=== PATIENT | female | born 1965 | race Caucasian/White ===

== ENCOUNTER 2017-03-31 07:55 | Observation (INO) | payer MEDICAID ==
[2017-03-31 08:11] VITALS: BMI 34.9
--- NOTE | 2017-03-31 08:20 | ED PDOC ---
Arrival/HPI - General Chief Complaint: Chest Pain Time Seen by Provider: 03/31/17 08:02 Historian: Patient - History of Present Illness Narrative History of Present Illness (Text): 03/31/17 08:14 A 52 year old female whose past medical history includes COPD, emphysema, bipolar, triple bypass with stents, GERD, presents to the emergency department with 3 day duration, intermittent, sharp left sided chest wall and neck pain that radiates down her right arm with associated nausea. The patient states that she was laying in bed when the pain began and that she experiences pain with movement of her left arm and neck. She took 81mg of Aspirin this morning. She notes that she has been stressed for the last couple of days. The patient denies fevers, chills, headache, dizziness, abdominal pain, vomiting, diarrhea, trauma or injury, or any other complaint. PMD: Dr. Quintanilla Supervisor [facility]: Dr. Benjamin Time/Duration: Other (3 Days ago) Symptom Onset: Sudden Symptom Course: Unchanged Activities at Onset: Rest, Light Context: Home Past Medical History - Provider Review Nursing Documentation Reviewed: Yes - Infectious Disease Hx of Infectious Diseases: None - Tetanus Immunization Tetanus Immunization: Unknown - Cardiac Hx [place]: Yes Hx Hypertension: Yes Other/Comment: Triple bypass - Pulmonary Hx Chronic Obstructive Pulmonary Disease (COPD): Yes Hx Emphysema: Yes - Neurological Hx Neurological Disorder: No - HEENT Hx HEENT Disorder: No - Renal Hx Renal Disorder: No - Endocrine/Metabolic Hx Endocrine Disorders: No - Hematological/Oncological Hx Blood Disorders: No - Musculoskeletal/Rheumatological Hx Falls: No - Gastrointestinal Hx Gastroesophageal Reflux: Yes - Genitourinary/Gynecological Hx Genitourinary Disorders: No - Psychiatric Hx Bipolar Disorder: Yes Hx Depression: No Hx Substance Use: No - Surgical History Hx Coronary Stent: Yes (x3) Other/Comment: Triple bypass - Anesthesia Hx Anesthesia: No - Suicidal Assessment Feels Threatened In Home Enviroment: No Family/Social History - Physician Review Nursing Documentation Reviewed: Yes Family/Social History: No Known Family HX Smoking Status: Former Smoker Hx Alcohol Use: No Hx Substance Use: No Hx Substance Use Treatment: No Allergies/Home Meds Allergies/Adverse Reactions: Allergies No Known Allergies Allergy (Verified 03/31/17 08:03) Home Medications: Home Meds Medication Instructions Recorded Confirmed Sertraline [Zoloft] 100 mg PO DAILY 12/12/11 03/31/17 ALPRAZolam [Xanax] 1 mg PO BID 12/24/15 03/31/17 Divalproex [Depakote ER] 1,000 mg PO DAILY 02/13/16 03/31/17 Clopidogrel [Plavix] 75 mg PO DAILY 11/30/16 03/31/17 Review of Systems - Physician Review All systems were reviewed & negative as marked: Yes - Review of Systems Constitutional: absent: Fevers, Night Sweats Respiratory: absent: SOB Cardiovascular: Chest Pain Gastrointestinal: Nausea. absent: Abdominal Pain, Diarrhea, Vomiting Musculoskeletal: Neck Pain, Other (left arm pain radiating from the chest wall ) Neurological: absent: Headache, Dizziness Physical Exam Vital Signs Reviewed: Yes Vital Signs Temp Pulse Resp BP Pulse Ox 03/31/17 11:15 65 16 131/91 H 98 03/31/17 10:11 64 16 126/87 98 03/31/17 08:10 98.2 F 62 18 147/90 99 Temperature: Afebrile Blood Pressure: Normal Pulse: Regular Respiratory Rate: Normal Appearance: Positive for: Well-Appearing, Non-Toxic, Comfortable Pain Distress: None Mental Status: Positive for: Alert and Oriented X 3 - Systems Exam Head: Present: Atraumatic, Normocephalic Pupils: Present: PERRL Extroacular Muscles: Present: EOMI Conjunctiva: Present: Normal Mouth: Present: Moist Mucous Membranes Neck: Present: Other (left sided neck tenderness worse with movement) Respiratory/Chest: Present: Other (Left sided chest wall tenderness) Cardiovascular: Present: Regular Rate and Rhythm, Normal S1, S2. No: Murmurs Abdomen: Present: Normal Bowel Sounds. No: Tenderness, Distention, Peritoneal Signs Back: Present: Normal Inspection Upper Extremity: Present: Normal Inspection. No: Cyanosis, Edema Lower Extremity: Present: Normal Inspection. No: Edema Neurological: Present: GCS=15, CN II-XII Intact, Speech Normal Skin: Present: Warm, Dry, Normal Color. No: Rashes Psychiatric: Present: Alert, Oriented x 3, Normal Insight, Normal Concentration Medical Decision Making ED Course and Treatment: 03/31/17 08:24 Impression: A 52 year old female with a complaint of left sided 3 day duration, sharp, intermittent chest pain, radiating to the left arm and neck. Differential Diagnosis included but are not limited to: Chest Pain rule out ACS vs. Musculoskeletal Plan: -- EKG -- Chest X-Ray -- Labs -- Ecotrin and Flexeril -- Reassess and disposition Prior Visits: Notes and results from previous visits were reviewed. On 03/15/2016 patient came in complaining of chest pain. Patient was discharged home. 11/29/2016 Normal Stress Test. Progress Notes: EKG: Ordered, reviewed, and independently interpreted the EKG. Rate : 53 BPM Rhythm : Sinus Bradycardic Interpretation : ST changes and interior lead. Comparison : Similar to previous EKG on 03/15/2016 03/31/17 09:25: Discussed case with Dr. Quintanilla. Dr. Quintanilla at bedside, recommends Head CT before reevaluation and disposition. 03/31/17 10:06: Chest X-Ray, read and interpreted by me: Negative. Chest X-Ray Dictator : Timoteo Frazier MD Report Date : 03/31/2017 10:34:48 IMPRESSION: No active disease. CT HEAD WITHOUT CONTRAST Dictator : Timoteo Frazier MD Report Date : 03/31/2017 10:09:06 IMPRESSION: No acute findings 03/31/17 10:36: Case discussed with Dr. Perez covering for Dr. Benjamin ( Cardiology), will admit to telemetry observation under Dr. Quintanilla. - Lab Interpretations Lab Results: 03/31/17 08:45 03/31/17 08:45 Lab Results 03/31/17 08:45: Sodium 142, Potassium 4.6, Chloride 109 H, Carbon Dioxide 24, Anion Gap 14, BUN 18, Creatinine 0.7, Est GFR ( Amer) > 60, Est GFR (Non- Af Amer) > 60, Random Glucose 95, Calcium 9.2, Magnesium 1.9, Total Bilirubin 0.3, AST 21, ALT 33, Alkaline Phosphatase 88, Lactate Dehydrogenase 444, Total Creatine Kinase 56, Troponin I < 0.01, Total Protein 7.3, Albumin 4.0, Globulin 3.3, Albumin/Globulin Ratio 1.2 03/31/17 08:45: PT 10.8, INR 1.00, APTT 25.6 03/31/17 08:45: WBC 3.7 L, RBC 4.28, Hgb 13.1, Hct 38.7, MCV 90.4, MCH 30.6, MCHC 33.9, RDW 12.7, Plt Count 171, MPV 11.0, Gran % 50.9, Lymph % (Auto) 31.8, [place] % (Auto) 11.5 H, Eos % (Auto) 5.5 H, Baso % (Auto) 0.3, Gran # 1.86, Lymph # 1.2, [place] # 0.4, Eos # 0.2, Baso # 0.01 I have reviewed the lab results: Yes - RAD Interpretation Radiology Orders: 03/31/17 08:16 CHEST PORTABLE [RAD] Stat 03/31/17 09:24 HEAD W/O CONTRAST [CT] Stat - EKG Interpretation Interpreted by ED Physician: Yes Type: 12 lead EKG - Medication Orders Current Medication Orders: Alprazolam (Xanax) 1 mg PO BID [facility] PRN Reason: Protocol Aspirin (Aspirin Chewable) 81 mg PO DAILY [facility] Atorvastatin Calcium (Lipitor) 80 mg PO DIN [facility] Clopidogrel Bisulfate (Plavix) 75 mg PO DAILY [facility] Last Admin: 03/31/17 13:37 Dose: 75 mg Famotidine (Pepcid) 20 mg PO 1000,2200 [facility] Metoprolol Tartrate (Lopressor) 25 mg PO BRKDIN [facility] Discontinued Medications Aspirin (Ecotrin) 162 mg PO STAT STA Stop: 03/31/17 08:16 Last Admin: 03/31/17 08:43 Dose: 162 mg Cyclobenzaprine HCl (Flexeril) 10 mg PO STAT STA Stop: 03/31/17 08:18 Last Admin: 03/31/17 08:43 Dose: 10 mg Pneumococcal Polyvalent Vaccine (Pneumovax 23 Vaccine) 0.5 ml IM .ONCE ONE Stop: 03/31/17 13:15 - Scribe Statement The provider has reviewed the documentation as recorded by the Morisibradha Alfaro Provider Scribe Attestation: All medical record entries made by the Scribe were at my direction and personally dictated by me. I have reviewed the chart and agree that the record accurately reflects my personal performance of the history, physical exam, medical decision making, and the department course for this patient. I have also personally directed, reviewed, and agree with the discharge instructions and disposition Disposition/Present on Arrival - Present on Arrival Any Indicators Present on Arrival: No History of DVT/PE: No History of Uncontrolled Diabetes: No Urinary Catheter: No History of Decub. Ulcer: No History Surgical Site Infection Following: None - Disposition Have Diagnosis and Disposition been Completed?: Yes Diagnosis: Chest pain Disposition: HOSPITALIZED Disposition Time: 10:20 Patient Plan: Observation Condition: FAIR
[2017-03-31 08:52] LABS: BASO # 0.01 K/mm3 (0.0-2.0); BASO % 0.3 % (0.0-3.0); EOS # 0.2 (0.0-0.7); EOS % 5.5 % (1.5-5.0); GRAN # 1.86 (1.4-6.5); GRAN % 50.9 % (50.0-68.0); HEMATOCRIT 38.7 % (36.0-48.0); LYMPH # 1.2 (1.2-3.4); LYMPH % 31.8 % (22.0-35.0); MEAN CELL VOLUME 90.4 fl (80.0-105.0); MEAN CORPUSCULAR HEMOGLOBIN 30.6 pg (25.0-35.0); MEAN CORPUSCULAR HGB CONC 33.9 g/dl (31.0-37.0); MONO # 0.4 (0.1-0.6); MONO % 11.5 % (1.0-6.0); RED CELL DISTRIBUTION WIDTH 12.7 % (11.5-14.5); WHITE BLOOD COUNT 3.7 10^3/ul (4.5-11.0)
[2017-03-31 09:02] LABS: PARTIAL THROMBOPLASTIN TIME 25.6 Seconds (23.7-30.8)
[2017-03-31 09:06] LABS: ALB/GLOB RATIO 1.2 (1.1-1.8); ALKALINE PHOSPHATASE 88 U/L (38-126); ALT/SGPT 33 U/L (7-56); AST/SGOT 21 U/L (14-36); BILIRUBIN,TOTAL 0.3 mg/dL (0.2-1.3); BLOOD UREA NITROGEN 18 mg/dL (7-21); CALCIUM 9.2 mg/dL (8.4-10.5); CARBON DIOXIDE 24 mmol/L (21-33); CHLORIDE 109 mmol/L (98-107); GFR AFRICAN-AMERICAN > 60; GLUCOSE,RANDOM 95 mg/dL (70-110); MAGNESIUM 1.9 mg/dL (1.7-2.2); POTASSIUM 4.6 mmol/L (3.6-5.0); SODIUM 142 mmol/L (132-148); TOTAL PROTEIN 7.3 g/dL (5.8-8.3)
[2017-03-31 09:20] LABS: TROPONIN I < 0.01 ng/mL
--- NOTE | 2017-03-31 10:11 | CT ---
PROCEDURE: CT HEAD WITHOUT CONTRAST. HISTORY: headache COMPARISON: None available. TECHNIQUE: Axial computed tomography images were obtained through the head/brain without intravenous contrast. Radiation dose: Total exam DLP = 725 mGy-cm. This CT exam was performed using one or more of the following dose reduction techniques: Automated exposure control, adjustment of the mA and/or kV according to patient size, and/or use of iterative reconstruction technique. FINDINGS: HEMORRHAGE: No intracranial hemorrhage. BRAIN: No mass effect or edema. No atrophy or chronic microvascular ischemic changes. VENTRICLES: Unremarkable. No hydrocephalus. CALVARIUM: Unremarkable. PARANASAL SINUSES: Unremarkable as visualized. No significant inflammatory changes. MASTOID AIR CELLS: Unremarkable as visualized. No inflammatory changes. OTHER FINDINGS: None. IMPRESSION: No acute findings
--- NOTE | 2017-03-31 10:36 | RAD ---
HISTORY: chest pain COMPARISON: 02/13/2016 FINDINGS: LUNGS: No active pulmonary disease. PLEURA: No significant pleural effusion identified, no pneumothorax apparent. CARDIOVASCULAR: Normal. OSSEOUS STRUCTURES: No significant abnormalities. VISUALIZED UPPER ABDOMEN: Normal. OTHER FINDINGS: None. IMPRESSION: No active disease.
[2017-03-31] MEDS ORDERED: Pneumococcal 23-Valent Vaccine IM ONE (13:14)
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
--- NOTE | 2017-03-31 19:24 | CARD ---
APPROVED REPORT EKG Measurement Heart [id number] <Conclusion> Sinus bradycardia Possible Anterior infarct, age undetermined Abnormal ECG
--- NOTE | 2017-03-31 21:43 | CP.PCM.PN ---
Subjective - Date & Time of Evaluation Date of Evaluation: 03/31/17 Time of Evaluation: 21:43 - Subjective Subjective: nervous Objective - Vital Signs/Intake and Output Vital Signs (last 24 hours): Temp Pulse Resp BP Pulse Ox 98.1 F 70 21 145/87 97 03/31/17 18:00 03/31/17 18:00 03/31/17 18:00 03/31/17 18:00 03/31/17 11:25 - Medications Medications: Current Medications Alprazolam (Xanax) 1 mg PO BID [facility] PRN Reason: Protocol Last Admin: 03/31/17 21:23 Dose: 1 mg Aspirin (Aspirin Chewable) 81 mg PO DAILY [facility] Atorvastatin Calcium (Lipitor) 80 mg PO DIN [facility] Last Admin: 03/31/17 17:38 Dose: 80 mg Clopidogrel Bisulfate (Plavix) 75 mg PO DAILY [facility] Last Admin: 03/31/17 13:37 Dose: 75 mg Divalproex Sodium (Depakote Er(Once Daily)) 1,000 mg PO DAILY [facility] PRN Reason: Protocol Famotidine (Pepcid) 20 mg PO 1000,2200 [facility] Last Admin: 03/31/17 21:23 Dose: 20 mg Metoprolol Tartrate (Lopressor) 25 mg PO BRKDIN [facility] Last Admin: 03/31/17 17:33 Dose: 25 mg Sertraline HCl (Zoloft) 100 mg PO DAILY [facility] - Labs Labs: PT 10.8 Seconds (9.9-11.8) 03/31/17 08:45 INR 1.00 (0.93-1.08) 03/31/17 08:45 APTT 25.6 Seconds (23.7-30.8) 03/31/17 08:45
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
--- NOTE | 2017-04-01 02:18 | HP ---
HISTORY OF PRESENT ILLNESS: I was called down to the emergency room this morning to check on the patient. She comes in with a history of 3-day duration of intermittent sharp left-sided chest pain, neck pain, and head pain, also some nauseousness. She was lying down in bed when this happened to her. She came to the emergency room when this did not go away. She did take an 81 mg aspirin this morning. She has also been stressed for a few days. PAST MEDICAL HISTORY: She has COPD, emphysema, bipolar, triple bypass with stent, gastroesophageal reflux disease,. FAMILY HISTORY: No known family history. SOCIAL HISTORY: Former smoker. No alcohol. No drugs. ALLERGIES: No known drug allergies. MEDICATIONS: She is on Zoloft for depression, Xanax for anxiety, Depakote for seizure history, and Plavix. She had triple bypass surgery. REVIEW OF SYSTEMS: She is having a severe headache in the back of the head, neck pain. No acute vision or hearing loss. There is chest pain. No palpitations. No shortness of breath. No cough. There is some nauseousness associated with no abdominal pain, diarrhea, or vomiting. No extremity pain. No skin issues. No rashes or ulcers. PHYSICAL EXAMINATION: GENERAL: She is alert, worried, head pain, chest pain, maybe a little bit worried, fairly comfortable at this time, smiled when she saw me. VITAL SIGNS: She has 98.2 temperature, 64 pulse, 16 respiratory rate, 126/87 and 131/91 blood pressures, and 90% O2 saturation on room air. HEENT: Head is atraumatic, normocephalic. Extraocular muscles are intact. Pupils are equal and reactive to light and accommodation. Throat is moist. There is head pain, not reproducible. NECK: Supple. Left-sided neck tenderness was with motion. CHEST: There is left-sided chest wall tenderness and reproducible. HEART: Regular rate. Normal S1 and S2. LUNGS: Decreased breath sounds, but clear to auscultation bilaterally. ABDOMEN: Soft, nontender, positive bowel sounds. EXTREMITIES: Have no edema. NEUROLOGIC: Cranial nerves II through XII grossly intact. Speech is normal. GCS is 15. SKIN: Warm and dry. No rashes or ulcers appreciative. NEUROLOGIC: Alert, comfortable, a little nervous, and for the most part intact that I could appreciate. NODES: Thyroid midline. No palpable lymphadenopathy appreciated. IMAGING: She had a chest x-ray which showed no active disease. CT scan of the head which has no acute findings. LABORATORY DATA: She has 142 sodium, potassium 4.6, BUN 18, creatinine 0.7, GFR is greater than 60. Sugar is 95, calcium is 9.2, magnesium 1.9, total bilirubin is 0.3, AST is 21, ALT is 33, alkaline phosphatase is 88. Lactate dehydrogenase is 444, total creatinine kinase is 56, troponin 1 is less than 0.01, total protein is 7.3, albumin is 4, globulin is 3.3, INR is 1. White count 3.7, hemoglobin 30.1, hematocrit 30.7, platelets are 171. IMPRESSION AND PLAN: She was given an aspirin. She has Lipitor, Lopressor, Pepcid, Plavix ordered. Xanax was ordered. Has a consult with Dr. Benjamin, shirt cleaner, on a heart health diet. Recommend physical therapy. I am also going to get to Neurology consulted for that head pain. She is on observation. We will check more troponins and see how she does. If she does well, we could discharge her tomorrow. She is on observation for chest pain, neck pain, head pain. Taras Quintanilla DO MTDD
[2017-04-01 06:41] LABS: HEMATOCRIT 41.3 % (36.0-48.0); MEAN CELL VOLUME 89.2 fl (80.0-105.0); MEAN CORPUSCULAR HGB CONC 33.7 g/dl (31.0-37.0); MEAN PLATELET VOLUME 10.1 fl (7.0-11.0); RED CELL DISTRIBUTION WIDTH 12.6 % (11.5-14.5); WHITE BLOOD COUNT 3.7 10^3/ul (4.5-11.0)
[2017-04-01 06:48] LABS: ALB/GLOB RATIO 1.3 (1.1-1.8); ALKALINE PHOSPHATASE 75 U/L (38-126); ALT/SGPT 32 U/L (7-56); AST/SGOT 34 U/L (14-36); BILIRUBIN,TOTAL 0.4 mg/dL (0.2-1.3); BLOOD UREA NITROGEN 16 mg/dL (7-21); CALCIUM 9.4 mg/dL (8.4-10.5); CARBON DIOXIDE 28 mmol/L (21-33); CHLORIDE 106 mmol/L (98-107); GFR AFRICAN-AMERICAN > 60; GLUCOSE,RANDOM 94 mg/dL (70-110); POTASSIUM 4.2 mmol/L (3.6-5.0); SODIUM 143 mmol/L (132-148); TOTAL PROTEIN 7.5 g/dL (5.8-8.3)
[2017-04-01 06:58] VITALS: O2SAT 98
[2017-04-01] MEDS ORDERED: Divalproex 500 mg ER (ONCE DAILY formulation) PO SCH (10:00)
[2017-04-01 12:16] VITALS: BP 128/76; PULSE 76; RESP 20; TEMP 97.7
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
== END 2017-04-01 13:51 | disposition home or self-care (01) ==
LOC: ED 07:55 → ERH 10:29 → 2RSO 11:26
PROVIDERS: ADMIT Family Medicine; ATTEND Family Medicine
DX: R07.89 Other chest pain (principal); R51 Headache; M54.2 Cervicalgia; K21.9 Gastro-esophageal reflux disease without esophagitis; J44.9 Chronic obstructive pulmonary disease, unspecified; F41.9 Anxiety disorder, unspecified; I25.10 Atherosclerotic heart disease of native coronary artery without angina pectoris; I10 Essential (primary) hypertension; F31.9 Bipolar disorder, unspecified; E66.9 Obesity, unspecified; F17.200 Nicotine dependence, unspecified, uncomplicated; I25.2 Old myocardial infarction; Z68.34 Body mass index [BMI] 34.0-34.9, adult; Z95.5 Presence of coronary angioplasty implant and graft
CPT/HCPCS: 36415; 70450; 71010; 80053; 82550; 83615; 83735; 84484; 85025; 85027; 85610; 85730; 93005; 99285; G0378

== ENCOUNTER 2017-04-18 10:14 | Emergency (ER) | payer MEDICAID ==
[2017-04-18 10:14] VITALS: BMI 34.9
[2017-04-18 10:23] VITALS: BP 125/83; PULSE 76; RESP 16; TEMP 98.7; O2SAT 98
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
[2017-04-18 11:06] LABS: BASO # 0.01 K/mm3 (0.0-2.0); BASO % 0.3 % (0.0-3.0); EOS # 0.2 (0.0-0.7); EOS % 5.5 % (1.5-5.0); GRAN # 2.01 (1.4-6.5); GRAN % 55.2 % (50.0-68.0); HEMATOCRIT 41.7 % (36.0-48.0); LYMPH # 1.2 (1.2-3.4); LYMPH % 33.5 % (22.0-35.0); MEAN CELL VOLUME 88.9 fl (80.0-105.0); MEAN CORPUSCULAR HEMOGLOBIN 30.5 pg (25.0-35.0); MEAN CORPUSCULAR HGB CONC 34.3 g/dl (31.0-37.0); MEAN PLATELET VOLUME 10.3 fl (7.0-11.0); MONO # 0.2 (0.1-0.6); MONO % 5.5 % (1.0-6.0); RED CELL DISTRIBUTION WIDTH 12.5 % (11.5-14.5); WHITE BLOOD COUNT 3.6 10^3/ul (4.5-11.0)
--- NOTE | 2017-04-18 11:11 | RAD ---
HISTORY: chest pain COMPARISON: Portable chest 03/31/2017. FINDINGS: LUNGS: No active pulmonary disease. PLEURA: No significant pleural effusion identified, no pneumothorax apparent. CARDIOVASCULAR: Normal. OSSEOUS STRUCTURES: No significant abnormalities. VISUALIZED UPPER ABDOMEN: Normal. OTHER FINDINGS: None. IMPRESSION: No acute cardiopulmonary disease or significant interval change.
[2017-04-18 11:15] LABS: ALB/GLOB RATIO 1.3 (1.1-1.8); ALKALINE PHOSPHATASE 91 U/L (38-126); ALT/SGPT 24 U/L (7-56); AST/SGOT 25 U/L (14-36); BILIRUBIN,TOTAL 0.4 mg/dL (0.2-1.3); BLOOD UREA NITROGEN 17 mg/dL (7-21); CALCIUM 9.7 mg/dL (8.4-10.5); CARBON DIOXIDE 28 mmol/L (21-33); CHLORIDE 103 mmol/L (98-107); GFR AFRICAN-AMERICAN > 60; GLUCOSE,RANDOM 100 mg/dL (70-110); MAGNESIUM 1.9 mg/dL (1.7-2.2); POTASSIUM 4.2 mmol/L (3.6-5.0); SODIUM 143 mmol/L (132-148); TOTAL PROTEIN 8.2 g/dL (5.8-8.3)
[2017-04-18 11:31] LABS: TROPONIN I < 0.01 ng/mL
--- NOTE | 2017-04-19 08:15 | CARD ---
APPROVED REPORT EKG Measurement Heart [id number] CT 144P52 [id number] <Conclusion> Normal sinus rhythm PRWP Possible Left atrial enlargement Cannot rule out Anterior infarct, age undetermined No change
== END 2017-04-18 12:40 | disposition home or self-care (01) ==
LOC: ED 10:14
DX: R07.9 Chest pain, unspecified (principal); I25.2 Old myocardial infarction; I10 Essential (primary) hypertension; Z95.1 Presence of aortocoronary bypass graft; Z87.891 Personal history of nicotine dependence
CPT/HCPCS: 71010; 80053; 82550; 83615; 83735; 84484; 85025; 93005; 96374; 99283; J2765

== ENCOUNTER 2018-02-10 17:04 | Emergency (ER) | payer MEDICAID ==
[2018-02-10 17:05] VITALS: BMI 34.9
--- NOTE | 2018-02-10 17:15 | ED PDOC ---
Arrival/HPI - General Chief Complaint: Chest Pain Time Seen by Provider: 02/10/18 17:06 Historian: Patient - History of Present Illness Narrative History of Present Illness (Text): 02/10/18 17:17 52yo female with pmhx of hypertension, hypercholestremia, myocardial infarction present with 3days history of worsening achy/pressure left sided chest pain, that radiates to her neck and left arm. States she took Gingerale thinking is gas, without relieve. She also report one episode of diarrhea today. States she is nauseous, but is her baseline. She denies abdominal pain, ripping/tearing upper back pain, abdominal pain, diaphoresis, LE edema, calf pain, sick contact , cough, vomiting, headache, dizziness, any other complaint. Past Medical History - Provider Review Nursing Documentation Reviewed: Yes - Infectious Disease Hx of Infectious Diseases: None - Tetanus Immunization Tetanus Immunization: Unknown - Cardiac Hx ID: Yes (x 3 stents) Hx Hypertension: Yes Other/Comment: Triple bypass - Pulmonary Hx Chronic Obstructive Pulmonary Disease (COPD): Yes Hx Emphysema: Yes Other/Comment: smoker - Neurological Hx Neurological Disorder: No - HEENT Hx HEENT Disorder: No - Renal Hx Renal Disorder: No - Endocrine/Metabolic Hx Endocrine Disorders: No - Hematological/Oncological Hx Blood Disorders: No - Musculoskeletal/Rheumatological Hx Falls: No - Gastrointestinal Hx Gastroesophageal Reflux: Yes - Genitourinary/Gynecological Hx Genitourinary Disorders: No - Psychiatric Hx Bipolar Disorder: Yes Hx Depression: No Hx Substance Use: Yes - Surgical History Hx Coronary Stent: Yes (x3) Other/Comment: Triple bypass - Anesthesia Hx Anesthesia: Yes - Suicidal Assessment Feels Threatened In Home Enviroment: No Family/Social History - Physician Review Nursing Documentation Reviewed: Yes Family/Social History: Unknown Family HX Smoking Status: Light Smoker < 10 Cigarettes Daily Hx Alcohol Use: No Hx Substance Use: Yes Substance used: marijuana Hx Substance Use Treatment: No Allergies/Home Meds Allergies/Adverse Reactions: Allergies No Known Allergies Allergy (Verified 03/31/17 08:03) Home Medications: Home Meds Medication Instructions Recorded Confirmed ALPRAZolam [Xanax] 1 tab PO BID 02/10/18 02/10/18 Albuterol HFA [Ventolin HFA 90 2 puff IH PRN PRN 02/10/18 02/10/18 mcg/actuation (8 g)] Aspirin [Adult Low Dose Aspirin EC] 1 tab PO DAILY 02/10/18 02/10/18 Atorvastatin [Lipitor] 1 tab PO HS 02/10/18 02/10/18 Divalproex [Depakote DR] 1 tab PO BID 02/10/18 02/10/18 Famotidine [Pepcid] 1 tab PO DAILY 02/10/18 02/10/18 Pantoprazole [Protonix EC Tab] 1 tab PO DAILY 02/10/18 02/10/18 Sertraline HCl 2 tab PO DAILY 02/10/18 02/10/18 Valsartan [Diovan] 1 tab PO BID 02/10/18 02/10/18 traMADol [Ultram] 1 tab PO BID PRN 02/10/18 02/10/18 Review of Systems - Physician Review All systems were reviewed & negative as marked: Yes - Review of Systems Constitutional: Normal Eyes: Normal ENT: Normal Respiratory: Normal Cardiovascular: Chest Pain. absent: Palpitations, Edema, Calf Pain, BARBOSA, Orthopnea Gastrointestinal: Diarrhea, Nausea. absent: Abdominal Pain, Constipation, Vomiting, Hematochezia, Hematemesis Genitourinary Female: Normal Musculoskeletal: Normal Skin: Normal Neurological: Normal Endocrine: Normal Hemo/Lymphatic: Normal Psychiatric: Normal Physical Exam Vital Signs Reviewed: Yes Vital Signs Temp Pulse Resp BP Pulse Ox 02/10/18 19:12 73 18 121/72 98 02/10/18 17:14 98.1 F 68 18 110/64 95 Temperature: Afebrile Blood Pressure: Normal Pulse: Regular Respiratory Rate: Normal Appearance: Positive for: Well-Appearing, Non-Toxic, Comfortable Pain Distress: None Mental Status: Positive for: Alert and Oriented X 3 - Systems Exam Head: Present: Atraumatic, Normocephalic Pupils: Present: PERRL Extroacular Muscles: Present: EOMI Conjunctiva: Present: Normal Mouth: Present: Moist Mucous Membranes Neck: Present: Normal Range of Motion Respiratory/Chest: Present: Clear to Auscultation, Good Air Exchange. No: Respiratory Distress, Accessory Muscle Use, Wheezes, Decreased Breath Sounds, Rales, Retracting, Rhonchi, Tachypneic, Tender to Palpation Cardiovascular: Present: Regular Rate and Rhythm, Normal S1, S2. No: Murmurs Abdomen: Present: Other (Soft). No: Tenderness, Distention, Peritoneal Signs, Rebound, Guarding, McBurney's Point Tender, Rovsing's Sign Present Back: Present: Normal Inspection Upper Extremity: Present: Normal Inspection. No: Cyanosis, Edema Lower Extremity: Present: Normal Inspection. No: Edema Neurological: Present: GCS=15, CN II-XII Intact, Speech Normal Skin: Present: Warm, Dry, Normal Color. No: Rashes Psychiatric: Present: Alert, Oriented x 3, Normal Insight, Normal Concentration Medical Decision Making ED Course and Treatment: 02/10/18 17:23 52yo female in ED with complaint of chest pain x3days. Labs ordered EKG CXR ASA 325mg Will reassess EKG Sinus vidya @53bpm 02/10/18 19:23 PT's first CE was wnl. She remain comfortable in ED asking for food and was fed. Secondary to her cardiac risk she was offered admission, but she declined admission. States she have a son at home and under a care of a physician primary care sports medicine. Her last stress test was last year. She understood the risk of having myocardial infarction which include , permanent disability. She is willing to stay in ED for a second CE and if negative she will be DC home to f/u with a physician primary care sports medicine. Case was also DW Dr. Quintanilla and he agreed. 02/10/18 20:50 Repeat CE was wnl and pt was DC home to f/u with her [employer] Director. - Lab Interpretations Lab Results: 02/10/18 17:20 02/10/18 17:20 Lab Results 02/10/18 17:20: Sodium 144, Potassium 4.1, Chloride 106, Carbon Dioxide 26, Anion Gap 16, BUN 17, Creatinine 0.7, Est GFR ( Amer) > 60, Est GFR (Non- Af Amer) > 60, Random Glucose 91, Calcium 9.2, Magnesium 1.7, Total Bilirubin 0.4, AST 20, ALT 38, Alkaline Phosphatase 81, Lactate Dehydrogenase 402, Total Creatine Kinase 58, Troponin I < 0.01, NT-Pro-B Natriuret Pep 148, Total Protein 7.3, Albumin 4.2, Globulin 3.1, Albumin/Globulin Ratio 1.3 02/10/18 17:20: PT 11.9, INR 1.04, APTT 28.7, D-Dimer, Quantitative < 200 02/10/18 17:20: WBC 4.8 D, RBC 4.28, Hgb 12.9, Hct 37.7, MCV 88.1, MCH 30.1, MCHC 34.2, RDW 13.0, Plt Count 152, MPV 10.2, Gran % 56.4, Lymph % (Auto) 31.3, [place] % (Auto) 5.8, Eos % (Auto) 6.3 H, Baso % (Auto) 0.2, Gran # 2.71, Lymph # ( Auto) 1.5, [place] # (Auto) 0.3, Eos # (Auto) 0.3, Baso # (Auto) 0.01 - RAD Interpretation Radiology Orders: 02/10/18 17:14 CHEST PORTABLE [RAD] Stat - Medication Orders Current Medication Orders: Discontinued Medications Aspirin (Aspirin Chewable) 243 mg PO STAT STA Stop: 02/10/18 17:36 Last Admin: 02/10/18 17:37 Dose: 243 mg Famotidine (Pepcid) 20 mg IVP STAT STA Stop: 02/10/18 18:09 Last Admin: 02/10/18 18:13 Dose: 20 mg IVP Administration Document 02/10/18 18:13 GMD (Rec: 02/10/18 18:13 GMD [id number]) Charges for Administration # of IVP Administrations 1 Disposition/Present on Arrival - Present on Arrival Any Indicators Present on Arrival: No History of DVT/PE: No History of Uncontrolled Diabetes: No Urinary Catheter: No History of Decub. Ulcer: No History Surgical Site Infection Following: None - Disposition Have Diagnosis and Disposition been Completed?: Yes Diagnosis: Chest pain Disposition: HOME/ ROUTINE Disposition Time: 21:00 Patient Plan: Discharge Patient Problems: Current Active Problems Problem Status Onset Chest pain Acute Condition: STABLE Discharge Instructions (ExitCare): Chest Pain, Chest Pain (ED) Additional Instructions: Follow up with your [employer] Director Return to ED for any new or worsening symptoms Referrals: Taras Quintanilla DO [Primary Care Provider] - Follow up with primary Forms: [employer] (Serbian)
[2018-02-10 17:18] VITALS: RESP 18; TEMP 98.1
[2018-02-10 17:33] LABS: BASO # 0.01 K/mm3 (0.0-2.0); BASO % 0.2 % (0.0-3.0); EOS # 0.3 (0.0-0.7); EOS % 6.3 % (1.5-5.0); GRAN # 2.71 (1.4-6.5); GRAN % 56.4 % (50.0-68.0); HEMOGLOBIN 12.9 g/dL (12.0-16.0); LYMPH # 1.5 (1.2-3.4); LYMPH % 31.3 % (22.0-35.0); MEAN CELL VOLUME 88.1 fl (80.0-105.0); MEAN CORPUSCULAR HEMOGLOBIN 30.1 pg (25.0-35.0); MEAN CORPUSCULAR HGB CONC 34.2 g/dl (31.0-37.0); MEAN PLATELET VOLUME 10.2 fl (7.0-11.0); MONO # 0.3 (0.1-0.6); MONO % 5.8 % (1.0-6.0); RBC 4.28 10^6/uL (3.5-6.1); WHITE BLOOD COUNT 4.8 10^3/ul (4.5-11.0)
[2018-02-10 17:48] LABS: ALB/GLOB RATIO 1.3 (1.1-1.8); ALBUMIN 4.2 g/dL (3.0-4.8); ALT/SGPT 38 U/L (7-56); AST/SGOT 20 U/L (14-36); BLOOD UREA NITROGEN 17 mg/dL (7-21); CALCIUM 9.2 mg/dL (8.4-10.5); GFR AFRICAN-AMERICAN > 60; GFR NON-AFRICAN AMERICAN > 60
[2018-02-10 17:51] LABS: INR 1.04 (0.93-1.08); PROTHROMBIN TIME 11.9 SECONDS (9.4-12.5)
[2018-02-10 17:52] LABS: D DIMER < 200 ng/mL (0-243); PARTIAL THROMBOPLASTIN TIME 28.7 Seconds (25.1-36.5)
--- NOTE | 2018-02-10 17:55 | RAD ---
Date of service: 02/10/2018 HISTORY: Chest pain COMPARISON: 04/18/2017. FINDINGS: LUNGS: The lungs are well inflated and clear. PLEURA: No significant pleural effusion identified, no pneumothorax apparent. CARDIOVASCULAR: Normal. OSSEOUS STRUCTURES: No significant abnormalities. VISUALIZED UPPER ABDOMEN: Normal. OTHER FINDINGS: None. IMPRESSION: No active pulmonary disease.
[2018-02-10 17:59] LABS: B-TYPE NATRIURETIC PEPTIDE 148 pg/mL (0-450); TROPONIN I < 0.01 ng/mL
[2018-02-10 21:01] VITALS: BP 120/75; PULSE 72; O2SAT 100
--- NOTE | 2018-02-11 09:22 | CARD ---
APPROVED REPORT Date of service: 02/10/2018 EKG Measurement Heart [id number] CT 138P54 [id number] <Conclusion> Sinus bradycardia Otherwise normal ECG
== END 2018-02-10 20:58 | disposition home or self-care (01) ==
LOC: ED 17:04
DX: R07.9 Chest pain, unspecified (principal); I10 Essential (primary) hypertension; E78.00 Pure hypercholesterolemia, unspecified; F17.210 Nicotine dependence, cigarettes, uncomplicated; J44.9 Chronic obstructive pulmonary disease, unspecified

== ENCOUNTER 2018-03-21 00:44 | Emergency (ER) | payer MEDICAID ==
[2018-03-21 00:44] VITALS: BMI 34.9
--- NOTE | 2018-03-21 01:20 | ED PDOC ---
Arrival/HPI - General Chief Complaint: Lower Extremity Problem/Injury Time Seen by Provider: 03/21/18 01:18 Historian: Patient - History of Present Illness Narrative History of Present Illness (Text): 03/21/18 01:19 Jonna Kraus is a 53 year old female who presents to the emergency department complaining of right ankle pain. Patient states she tripped and twisted her left ankle tonight prior to arrival. Patient now complaining of right ankle/ foot pain, worsened with movement and bearing weight on the extremity. Patient denies any weakness/numbness/tingling in the extremity, other trauma/injury, or any other complaints. Time/Duration: Prior to Arrival Symptom Onset: Sudden Symptom Course: Unchanged Activities at Onset: Light Context: Home, Tripped Past Medical History - Provider Review Nursing Documentation Reviewed: Yes - Infectious Disease Hx of Infectious Diseases: None - Tetanus Immunization Tetanus Immunization: Unknown - Cardiac Hx RI: Yes (x 3 stents) Hx Hypertension: Yes Other/Comment: Triple bypass - Pulmonary Hx Chronic Obstructive Pulmonary Disease (COPD): Yes Hx Emphysema: Yes Other/Comment: smoker - Neurological Hx Neurological Disorder: No - HEENT Hx HEENT Disorder: No - Renal Hx Renal Disorder: No - Endocrine/Metabolic Hx Endocrine Disorders: No - Hematological/Oncological Hx Blood Disorders: No - Musculoskeletal/Rheumatological Hx Falls: No - Gastrointestinal Hx Gastroesophageal Reflux: Yes - Genitourinary/Gynecological Hx Genitourinary Disorders: No - Psychiatric Hx Bipolar Disorder: Yes Hx Depression: No Hx Substance Use: Yes - Surgical History Hx Coronary Stent: Yes (x3) Other/Comment: Triple bypass - Anesthesia Hx Anesthesia: Yes - Suicidal Assessment Feels Threatened In Home Enviroment: No Family/Social History - Physician Review Nursing Documentation Reviewed: Yes Family/Social History: Unknown Family HX Smoking Status: Light Smoker < 10 Cigarettes Daily Hx Alcohol Use: No Hx Substance Use: Yes Substance used: marijuana Hx Substance Use Treatment: No Allergies/Home Meds Allergies/Adverse Reactions: Allergies No Known Allergies Allergy (Verified 03/31/17 08:03) Home Medications: Home Meds Medication Instructions Recorded Confirmed ALPRAZolam [Xanax] 1 tab PO BID 02/10/18 02/10/18 Albuterol HFA [Ventolin HFA 90 2 puff IH PRN PRN 02/10/18 02/10/18 mcg/actuation (8 g)] Aspirin [Adult Low Dose Aspirin EC] 1 tab PO DAILY 02/10/18 02/10/18 Atorvastatin [Lipitor] 1 tab PO HS 02/10/18 02/10/18 Divalproex [Depakote DR] 1 tab PO BID 02/10/18 02/10/18 Famotidine [Pepcid] 1 tab PO DAILY 02/10/18 02/10/18 Pantoprazole [Protonix EC Tab] 1 tab PO DAILY 02/10/18 02/10/18 Sertraline HCl 2 tab PO DAILY 02/10/18 02/10/18 Valsartan [Diovan] 1 tab PO BID 02/10/18 02/10/18 traMADol [Ultram] 1 tab PO BID PRN 02/10/18 02/10/18 Review of Systems - Physician Review All systems were reviewed & negative as marked: Yes - Review of Systems Constitutional: Normal Eyes: Normal ENT: Normal Respiratory: Normal Cardiovascular: Normal Gastrointestinal: Normal. absent: Abdominal Pain, Diarrhea, Nausea, Vomiting Genitourinary Female: Normal. absent: Dysuria, Frequency, Hematuria, Urine Output Changes Musculoskeletal: Arthralgias (+left ankle pain). absent: Neck Pain Skin: Normal. absent: Rash Neurological: Normal. absent: Headache, Dizziness Endocrine: Normal Hemo/Lymphatic: Normal Psychiatric: Normal Physical Exam Vital Signs Reviewed: Yes Vital Signs Temp Pulse Resp BP Pulse Ox 03/21/18 04:02 98.0 F 79 17 125/62 99 03/21/18 01:34 98.0 F 82 16 128/63 100 Temperature: Afebrile Blood Pressure: Normal Pulse: Regular Respiratory Rate: Normal Appearance: Positive for: Well-Appearing, Non-Toxic, Comfortable Pain Distress: None Mental Status: Positive for: Alert and Oriented X 3 - Systems Exam Head: Present: Atraumatic, Normocephalic Pupils: Present: PERRL Conjunctiva: Present: Normal Mouth: Present: Moist Mucous Membranes Neck: Present: Normal Range of Motion Respiratory/Chest: Present: Clear to Auscultation, Good Air Exchange. No: Respiratory Distress, Accessory Muscle Use Lower Extremity: Present: NORMAL PULSES, Swelling (Swelling over left lateral malleolus), Neurovascularly Intact, Capillary Refill < 2 s. No: Edema, Tenderness, Erythema, Deformity, Temperature Abnormalties Neurological: Present: GCS=15, CN II-XII Intact, Speech Normal Skin: Present: Warm, Dry, Normal Color. No: Rashes Psychiatric: Present: Alert, Oriented x 3, Normal Insight, Normal Concentration Medical Decision Making ED Course and Treatment: 03/21/18 01:19 Impression: 53 year old female complaining of left ankle/foot pain s/p strip and fall [employer]. Plan: -- XR Left Ankle -- XR Left Foot -- Percocet -- Reassess and disposition Prior Visits: Notes and results from previous visits were reviewed. On 02/10/2018, pt was seen in the emergency department for left-sided chest pain. Pt was d/c home. Progress Notes: 03/21/18 03:13 Reviewed radiology, XR Left Ankle shows no acute fracture, no dislocation. XR Left Foot shows no acute fracture, no dislocation. - RAD Interpretation Radiology Orders: 03/21/18 01:20 ANKLE LEFT 3 VIEWS ROUTINE [RAD] Stat FOOT LEFT 3 VIEWS ROUTINE [RAD] Stat Can Piler: ED Physician - Medication Orders Current Medication Orders: Discontinued Medications Ketorolac Tromethamine (Toradol) 15 mg IM ONCE ONE Stop: 03/21/18 02:33 Last Admin: 03/21/18 03:28 Dose: 15 mg MAR Pain Assessment Document 03/21/18 03:28 IT (Rec: 03/21/18 03:29 IT [id number]) Pain Reassessment Is this a pain reassessment? No Sleep Is patient sleeping during reassessment? No Presence of Pain Presence of Pain Yes Pain Scale Used Pain Scale Used Numeric IM Administration Charges Document 03/21/18 03:28 IT (Rec: 03/21/18 03:29 IT [id number]) Injection Site MAR Injection Site Left Gluteus James Charges for Administration # of IM Administrations 1 Oxycodone/Acetaminophen (Percocet 5/325 Mg Tab) 1 tab PO STAT STA Stop: 03/21/18 01:21 Last Admin: 03/21/18 01:49 Dose: 1 tab MAR Pain Assessment Document 03/21/18 01:49 IT (Rec: 03/21/18 01:49 IT [id number]) Pain Reassessment Is this a pain reassessment? No Sleep Is patient sleeping during reassessment? No Presence of Pain Presence of Pain Yes Pain Scale Used Pain Scale Used Numeric Location Left, Right or Bilateral Left - Scribe Statement The provider has reviewed the documentation as recorded by the Morisibradha Díaz Provider Scribe Attestation: All medical record entries made by the Scribe were at my direction and personally dictated by me. I have reviewed the chart and agree that the record accurately reflects my personal performance of the history, physical exam, medical decision making, and the department course for this patient. I have also personally directed, reviewed, and agree with the discharge instructions and disposition. Disposition/Present on Arrival - Present on Arrival Any Indicators Present on Arrival: No History of DVT/PE: No History of Uncontrolled Diabetes: No Urinary Catheter: No History of Decub. Ulcer: No History Surgical Site Infection Following: None - Disposition Have Diagnosis and Disposition been Completed?: Yes Diagnosis: Left ankle sprain Disposition: HOME/ ROUTINE Disposition Time: 03:30 Condition: GOOD Discharge Instructions (ExitCare): Ankle Sprain Additional Instructions: wear splint 4 to 5 days Prescriptions: traMADol [Ultram] 50 mg PO QID #10 tab Referrals: Low Fang MD [Staff Provider] - Follow up with primary Taras Quintanilla DO [Primary Care Provider] - Follow up with primary Forms: [employer] (Libyan)
[2018-03-21] MEDS: Oxycodone/Acetaminophen 5/325 mg Tab PO STA (01:49)
[2018-03-21 04:01] VITALS: TEMP 98
[2018-03-21 04:02] VITALS: BP 125/62; PULSE 79; RESP 17; O2SAT 99
--- NOTE | 2018-03-21 08:29 | RAD ---
Date of service: 03/21/2018 PROCEDURE: Left Foot Radiographs. HISTORY: fall COMPARISON: None. FINDINGS: BONES: No acute fracture or destructive bony lesion identified. JOINTS: Mildly prominent joint space is appreciated at the proximal and distal interphalangeal joints of the left 4th digit of uncertain etiology. Consider possible postoperative change. Local soft tissues are not particularly edematous. Clinically correlate. Remaining joint spaces appear unremarkable throughout the left foot. SOFT TISSUES: Normal. OTHER FINDINGS: None. IMPRESSION: No acute fracture or dislocation. Prominent joint spaces are seen at the proximal distal interphalangeal joints of the 4th digit of uncertain origin.
--- NOTE | 2018-03-21 08:31 | RAD ---
Date of service: 03/21/2018 PROCEDURE: Left Ankle Radiographs. HISTORY: fall COMPARISON: None FINDINGS: BONES: No acute fracture or destructive bony lesion identified. JOINTS: Normal. No osteoarthritis. Ankle mortise maintained. Talar dome intact SOFT TISSUES: Normal. OTHER FINDINGS: None. IMPRESSION: Unremarkable left ankle radiographs.
== END 2018-03-21 04:02 | disposition home or self-care (01) ==
LOC: ED 00:44
DX: S93.402A Sprain of unspecified ligament of left ankle, initial encounter (principal); W01.0XXA Fall on same level from slipping, tripping and stumbling without subsequent striking against object, initial encounter; F17.210 Nicotine dependence, cigarettes, uncomplicated; I10 Essential (primary) hypertension
CPT/HCPCS: 73610; 73630; 96372; 99284; J1885

== ENCOUNTER 2018-09-05 12:15 | Emergency (ER) | payer MEDICAID ==
[2018-09-05 12:29] VITALS: BMI 33.3
--- NOTE | 2018-09-05 13:09 | ED PDOC ---
Arrival/HPI - General Chief Complaint: Chest Pain Time Seen by Provider: 09/05/18 12:24 Historian: Patient - History of Present Illness Narrative History of Present Illness (Text): 09/05/18 12:24 Jonna Kraus is a 53 year old female, with past medical history of triple bypass with stents, GERD, COPD, emphysema, and herniated discs, who presents to the emergency department with complaints of intermittent chest pain for 3 weeks. Patient states pain radiates to her left arm, left leg, and left side of her head. Patient informs that her chest pain is worsened by breathing. Patient denies any fevers, chills, headache, dizziness, dyspnea on exertion, cough, abdominal pain, nausea, vomiting, diarrhea, back pain, neck pain, or any other complaint. Time/Duration: < month Symptom Onset: Gradual Symptom Course: Intermittent Activities at Onset: Light Context: Home Past Medical History - Provider Review Nursing Documentation Reviewed: Yes - Infectious Disease Hx of Infectious Diseases: None - Tetanus Immunization Tetanus Immunization: Unknown - Reproductive Menopause: Yes () - Cardiac Hx Cardiac Disorders: Yes Hx DE: Yes (x 3 stents) Hx Hypertension: Yes - Pulmonary Hx Respiratory Disorders: Yes Hx Chronic Obstructive Pulmonary Disease (COPD): Yes Hx Emphysema: Yes Other/Comment: smoker - Neurological Hx Neurological Disorder: No - HEENT Hx HEENT Disorder: No - Renal Hx Renal Disorder: No - Endocrine/Metabolic Hx Endocrine Disorders: No - Hematological/Oncological Hx Blood Disorders: No - Integumentary Hx Dermatological Disorder: No - Musculoskeletal/Rheumatological Hx Musculoskeletal Disorders: No - Gastrointestinal Hx Gastrointestinal Disorders: Yes Hx Gastroesophageal Reflux: Yes - Genitourinary/Gynecological Hx Genitourinary Disorders: No - Psychiatric Hx Psychophysiologic Disorder: Yes Hx Bipolar Disorder: Yes Hx Depression: No Hx Substance Use: Yes - Surgical History Hx Cardiac Catheterization: Yes Hx Coronary Stent: Yes (x3) - Anesthesia Hx Anesthesia: Yes - Suicidal Assessment Feels Threatened In Home Enviroment: No Family/Social History - Physician Review Nursing Documentation Reviewed: Yes Family/Social History: Unknown Family HX Smoking Status: Light Smoker < 10 Cigarettes Daily Hx Alcohol Use: No Hx Substance Use: Yes Substance used: marijuana Hx Substance Use Treatment: No Allergies/Home Meds Allergies/Adverse Reactions: Allergies No Known Allergies Allergy (Verified 09/05/18 12:29) Home Medications: Home Meds Medication Instructions Recorded Confirmed ALPRAZolam [Xanax] 1 tab PO BID 02/10/18 02/10/18 Albuterol HFA [Ventolin HFA 90 2 puff IH PRN PRN 02/10/18 02/10/18 mcg/actuation (8 g)] Aspirin [Adult Low Dose Aspirin EC] 1 tab PO DAILY 02/10/18 02/10/18 Atorvastatin [Lipitor] 1 tab PO HS 02/10/18 02/10/18 Divalproex [Depakote DR] 1 tab PO BID 02/10/18 02/10/18 Famotidine [Pepcid] 1 tab PO DAILY 02/10/18 02/10/18 Pantoprazole [Protonix EC Tab] 1 tab PO DAILY 02/10/18 02/10/18 Sertraline HCl 2 tab PO DAILY 02/10/18 02/10/18 Valsartan [Diovan] 1 tab PO BID 02/10/18 02/10/18 traMADol [Ultram] 1 tab PO BID PRN 02/10/18 02/10/18 Review of Systems - Physician Review All systems were reviewed & negative as marked: Yes - Review of Systems Constitutional: absent: Fevers, Night Sweats Eyes: Vision Changes Respiratory: absent: Cough Cardiovascular: Chest Pain. absent: BARBOSA Gastrointestinal: absent: Abdominal Pain, Diarrhea, Nausea, Vomiting Musculoskeletal: Arthralgias (pain radiates from left shoulder, down to left leg, and to left side of head). absent: Back Pain, Neck Pain Neurological: absent: Headache, Dizziness Physical Exam Vital Signs Reviewed: Yes Vital Signs Pulse Resp BP Pulse Ox 09/05/18 12:30 74 16 132/77 96 Temperature: Afebrile Blood Pressure: Normal Pulse: Regular Respiratory Rate: Normal Appearance: Positive for: Well-Appearing, Non-Toxic, Comfortable Pain Distress: None Mental Status: Positive for: Alert and Oriented X 3 - Systems Exam Head: Present: Atraumatic, Normocephalic Pupils: Present: PERRL Extroacular Muscles: Present: EOMI Conjunctiva: Present: Normal Mouth: Present: Moist Mucous Membranes Neck: Present: Normal Range of Motion Respiratory/Chest: Present: Clear to Auscultation, Good Air Exchange, Tender to Palpation (left upper sternum). No: Respiratory Distress, Accessory Muscle Use, Wheezes, Rales, Rhonchi Cardiovascular: Present: Regular Rate and Rhythm, Normal S1, S2. No: Murmurs, Rub, Gallop Abdomen: No: Tenderness, Distention, Peritoneal Signs Breast/Axillary: Present: Tender to Palpation (near left axilla) Back: Present: Normal Inspection Upper Extremity: Present: Other (ABD left upper extremity beyond 90 degrees). No: Cyanosis, Edema Lower Extremity: Present: Normal Inspection. No: Edema, Swelling (No pedal swelling bilaterally) Neurological: Present: GCS=15, CN II-XII Intact, Speech Normal Skin: Present: Warm, Dry, Normal Color. No: Rashes Psychiatric: Present: Alert, Oriented x 3, Normal Insight, Normal Concentration Medical Decision Making ED Course and Treatment: 09/05/18 12:24 Impression: 53 year old female who presents to the emergency department with complaints of intermittent chest pain. Differential Diagnoses Include But Is Not Limited To: --ACS --Myocarditis/Pericarditis --Costochondritis Plan: -- Labs -- EKG -- Chest X-Ray -- Aspirin -- Toradol -- Urinalysis -- IV Insertion -- Reassess and disposition Prior Visits: Notes and results from previous visits were reviewed. Progress Notes: 09/05/18 13:57 Labs unremarkable with negative troponin and negative CXR. Patient still experiencing symptoms. Toradol and D dimer ordered. 09/05/18 14:[address] Benjamin, who is aware and agrees with plan of management for discharge. Patient understands return protocol and is in stable condition. - Lab Interpretations Lab Results: 09/05/18 13:00 09/05/18 13:00 Lab Results 09/05/18 13:00: Sodium 138, Potassium 4.3, Chloride 103, Carbon Dioxide 28, Anion Gap 11, BUN 14, Creatinine 0.7, Est GFR ( Amer) > 60, Est GFR (Non- Af Amer) > 60, Random Glucose 126 H, Calcium 9.3, Magnesium 2.0, Total Bilirubin 0.2, AST 17, ALT 11, Alkaline Phosphatase 78, Troponin I < 0.01, NT-Pro-B Natriuret Pep 175, Total Protein 7.5, Albumin 4.1, Globulin 3.4, Albumi n/Globulin Ratio 1.2 09/05/18 13:00: PT 11.7, INR 1.04, APTT 33.5 09/05/18 13:00: WBC 4.4 L, RBC 4.39, Hgb 13.1, Hct 39.7, MCV 90.4, MCH 29.8, MCHC 33.0, RDW 12.2, Plt Count 165, MPV 10.5, Neut % (Auto) 58.8, Lymph % (Auto) 27.2, Polk % (Auto) 5.2, Eos % (Auto) 8.6 H, Baso % (Auto) 0.2, Lymph # (Auto) 1.2, Polk # (Auto) 0.2, Eos # (Auto) 0.4, Baso # (Auto) 0.01, Absolute Neuts (auto) 2.59 I have reviewed the lab results: Yes - RAD Interpretation Radiology Orders: 09/05/18 12:55 CHEST PORTABLE [RAD] Stat - EKG Interpretation EKG Interpretation (Text): 09/05/18 13:50 Reviewed EKG, shows: NSR at 62 BPM. 0.5mm elevation in Lead II, no reciprocal changes. 09/05/18 14:32 Reviewed EKG, shows: NSR at [address] elevations on Lead II. No T wave elevations. Interpreted by ED Physician: Yes Type: 12 lead EKG - Medication Orders Current Medication Orders: Discontinued Medications Aspirin (Aspirin Chewable) 81 mg PO STAT STA Stop: 09/05/18 12:56 - Scribe Statement The provider has reviewed the documentation as recorded by the Scribradha Allred All medical record entries made by the Morisibradha were at my direction and personally dictated by me. I have reviewed the chart and agree that the record accurately reflects my personal performance of the history, physical exam, medical decision making, and the department course for this patient. I have also personally directed, reviewed, and agree with the discharge instructions and disposition. Disposition/Present on Arrival - Present on Arrival Any Indicators Present on Arrival: No History of DVT/PE: No History of Uncontrolled Diabetes: No Urinary Catheter: No History of Decub. Ulcer: No History Surgical Site Infection Following: None - Disposition Have Diagnosis and Disposition been Completed?: Yes Diagnosis: Musculoskeletal chest pain Disposition: HOME/ ROUTINE Disposition Time: :19 Patient Plan: Discharge Patient Problems: Current Active Problems Problem Status Onset Musculoskeletal chest pain Acute Condition: IMPROVED Discharge Instructions (ExitCare): Costochondritis (DC), Chest Pain (ED) Print Language: CHINESE Additional Instructions: All medical record entries made by the Scribe were at my direction and personally dictated by me. I have reviewed the chart and agree that the record accurately reflects my personal performance of the history, physical exam, medical decision making, and the department course for this patient. I have also personally directed, reviewed, and agree with the discharge instructions and disposition. Please follow up with the facing machine operator at your earliest convenience Check in with your PCP in 1 week Referrals: Taras Quintanilla, DO [Primary Care Provider] - Follow up with primary Forms: [employer] (Yi)
[2018-09-05 13:10] VITALS: TEMP 98.8
[2018-09-05 13:16] LABS: BASO # 0.01 K/mm3 (0.0-2.0); BASO % 0.2 % (0.0-3.0); EOS # 0.4 (0.0-0.7); EOS % 8.6 % (1.5-5.0); HEMOGLOBIN 13.1 g/dL (12.0-16.0); LYMPH # 1.2 (1.2-3.4); LYMPH % 27.2 % (22.0-35.0); MEAN CELL VOLUME 90.4 fl (80.0-105.0); MEAN CORPUSCULAR HEMOGLOBIN 29.8 pg (25.0-35.0); MEAN PLATELET VOLUME 10.5 fl (7.0-11.0); MONO # 0.2 (0.1-0.6); MONO % 5.2 % (1.0-6.0); RBC 4.39 10^6/uL (3.5-6.1); RED CELL DISTRIBUTION WIDTH 12.2 % (11.5-14.5); WHITE BLOOD COUNT 4.4 10^3/uL (4.5-11.0)
[2018-09-05 13:23] LABS: ALB/GLOB RATIO 1.2 (1.1-1.8); ALBUMIN 4.1 g/dL (3.0-4.8); ALT/SGPT 11 U/L (7-56); AST/SGOT 17 U/L (14-36); BLOOD UREA NITROGEN 14 mg/dL (7-21); CALCIUM 9.3 mg/dL (8.4-10.5); GFR NON-AFRICAN AMERICAN > 60
--- NOTE | 2018-09-05 13:23 | RAD ---
Date of service: 09/05/2018 HISTORY: Chest pain COMPARISON: Portable chest 02/10/2018. FINDINGS: LUNGS: No active pulmonary disease. PLEURA: No significant pleural effusion identified, no pneumothorax apparent. CARDIOVASCULAR: No aortic atherosclerotic calcification present. Normal cardiac size. No pulmonary vascular congestion. OSSEOUS STRUCTURES: No significant abnormalities. VISUALIZED UPPER ABDOMEN: Normal. OTHER FINDINGS: None. IMPRESSION: No interval acute cardiopulmonary disease appreciated.
[2018-09-05 13:31] LABS: INR 1.04; PARTIAL THROMBOPLASTIN TIME 33.5 Seconds (26.9-38.3); PROTHROMBIN TIME 11.7 SECONDS (9.4-12.5)
[2018-09-05 13:35] LABS: B-TYPE NATRIURETIC PEPTIDE 175 pg/mL (0-450); TROPONIN I < 0.01 ng/mL
[2018-09-05 14:47] VITALS: BP 123/43; PULSE 61; RESP 18; O2SAT 98
--- NOTE | 2018-09-06 07:26 | CARD ---
APPROVED REPORT Date of service: 09/05/2018 EKG Measurement Heart [id number] <Conclusion> Normal sinus rhythm Possible Anterior infarct, age undetermined Abnormal ECG
--- NOTE | 2018-09-06 07:26 | CARD ---
APPROVED REPORT Date of service: 09/05/2018 EKG Measurement Heart [id number] <Conclusion> Sinus bradycardia Cannot rule out Anterior infarct, age undetermined Abnormal ECG
== END 2018-09-05 14:47 | disposition home or self-care (01) ==
LOC: ED 12:15
DX: R07.89 Other chest pain (principal); F17.210 Nicotine dependence, cigarettes, uncomplicated; I10 Essential (primary) hypertension; I25.2 Old myocardial infarction; F31.9 Bipolar disorder, unspecified; J44.9 Chronic obstructive pulmonary disease, unspecified
CPT/HCPCS: 71045; 80053; 83735; 83880; 84484; 85025; 85378; 85610; 85730; 93005; 96374; 99284; J1885